=== PATIENT | male | born 1960 | race Caucasian/White ===

== ENCOUNTER 2019-01-30 17:53 | Emergency (ER) | payer BC, OTHER ==
[~2019-01-30] VITALS: Ht 177.8 cm; Wt 104.3 kg
[2019-01-30 19:00] LABS: ABSOLUTE NEUTROPHILS 3.3 thou/uL (1.4-8.2); BASOPHILS 1.3 % (0.0-2.0); EOSINOPHILS 15.7 % (0.0-3.0); HEMATOCRIT 42.6 % (42.0-52.0); HEMOGLOBIN 14.7 gm/dL (14.0-18.0); LYMPHOCYTES 22.6 % (24.0-44.0); MCH 31.2 pg (26.0-34.0); MCHC 34.5 g/dL (28.0-37.0); MCV 90.4 fL (80.0-100.0); MONOCYTES 8.3 % (1.0-8.0); PLATELET COUNT 133 thou/uL (150-400); POLYS 52.1 % (36.0-66.0); RBC 4.71 mil/uL (4.50-6.00); RDW 13.4 % (10.5-14.5); WBC 6.3 thou/uL (4.0-11.0)
[2019-01-30 19:07] LABS: ANION GAP 6 mmol/L (7-16); BUN 12 mg/dL (7-18); CALCIUM 8.5 mg/dL (8.5-10.1); CHLORIDE 105 mmol/L (98-107); CO2 27 mmol/L (21-32); CREATININE 1.1 mg/dL (0.7-1.3); GLUCOSE 101 mg/dL (74-106); POTASSIUM 3.9 mmol/L (3.5-5.1); SODIUM 138 mmol/L (136-145)
[2019-01-30 19:15] LABS: TROPONIN-I <0.06 ng/mL (<0.06)
[2019-01-30] MEDS ORDERED: SENNA-DOCUSATE1 EAC1 PO (20:22)
[2019-01-30] MEDS ORDERED: ELIQUIS5 M1 PO (20:22)
[2019-01-30] MEDS ORDERED: NORCO 5-325 TA1 EACH PO (20:22)
[2019-01-30 20:47] VITALS: BP 141/87
--- NOTE | 2019-01-31 09:31 | EKG ---
[place] [address] [facility] [place] [address] [place] [address] ELECTROCARDIOGRAM REPORT Name: RAJNI CARRANZA Room #: DEP Kinsey#: [id number] ������������������ Admission: 01/30/19 ������������������ Attend Phys: Discharge: 01/30/19 ������������������ Date of : 58 Report #: [id number] ����������������������������������������������������������������� [id number] THIS REPORT FOR: //name// [facility] ED Test Date: 2019-01-30 Test Time: 19:10:28 Pat Name: RAJNI CARRANZA Department: Room: Gender: Petroleum Geologist: : 1960 Requested By: Casimiro Erickson Order Number: [id number] MD: Alexander Cesar Measurements Intervals [place] Rate: 65 P: 27 CA: 175 QRS: -8 QRSD: 94 T: 3 QT: 419 QTc: 436 Interpretive Statements Sinus rhythm Abnormal R-wave progression, early transition No previous ECG available for comparison Electronically Signed On 01-31-2019 9:31:12 CDT by Alexander Cesar [email or web address] ��������������������������������������������� <ELECTRONICALLY SIGNED> ���������������������������������������� By: Alexander Cesar MD, [facility] ��������������������������������������������� 01/31/19 0931 [id number] 09 Alexander Cesar MD, FACC /EPI
== END 2019-01-30 20:49 | disposition home or self-care (01) ==
LOC: ER 17:53
PROVIDERS: Emergency Medicine
DX: I82.401 Acute embolism and thrombosis of unspecified deep veins of right lower extremity (principal); R07.89 Other chest pain; E03.9 Hypothyroidism, unspecified; Z88.1 Allergy status to other antibiotic agents; Z88.2 Allergy status to sulfonamides; Z88.5 Allergy status to narcotic agent